=== PATIENT | male | born 1985 | race Caucasian/White ===

== ENCOUNTER 2023-07-04 03:50 | Inpatient (IN) | payer OTHER ==
[2023-07-04 05:01] VITALS: BMI 21.7
[2023-07-04] MEDS ORDERED: ONDANSETRON *ODT* 4 MG TABLET SL PRN (06:32)
[2023-07-04] MEDS ORDERED: BENZOCAINE/MENTHOL (CHLORASEPTIC ) LOZENGE MM PRN (06:32)
[2023-07-04] MEDS ORDERED: ACETAMINOPHEN 325 MG TABLET (FP) PO PRN (06:32)
[2023-07-04] MEDS ORDERED: NICOTINE POLACRILEX 2 MG GUM BUC PRN (06:32)
[2023-07-04] MEDS ORDERED: DICYCLOMINE HCL 10 MG CAPSULE PO PRN (06:32)
[2023-07-04] MEDS ORDERED: BENZONATATE 200 MG CAPSULE PO PRN (06:32)
[2023-07-04] MEDS ORDERED: guaiFENesin 600 MG TABLET.ER (FP) PO PRN (06:32)
[2023-07-04] MEDS ORDERED: BISMUTH SUBSALICYLATE 524 MG/30 ML PO PRN (06:32)
[2023-07-04] MEDS ORDERED: NALOXONE HCL (KLOXXADO) 8 MG SPRAY NS PRN (06:32)
[2023-07-04] MEDS ORDERED: NALOXONE HCL 0.4 MG/ML VIAL IM PRN (06:32)
[2023-07-04] MEDS ORDERED: MAG HYDROX/AL HYDROX/SIMETH 30 ML UNIT-DOSE CUP PO PRN (06:32)
[2023-07-04] MEDS ORDERED: POLYETHYLENE GLYCOL (HEALTHYLAX) 3350 17 GM PACKET PO PRN (06:32)
[2023-07-04] MEDS ORDERED: MAGNESIUM HYDROX 2400MG/30ML ORAL SUSPENSION 30 ML CUP PO PRN (06:32)
[2023-07-04] MEDS ORDERED: IBUPROFEN 400 MG TABLET (FP) PO PRN (06:32)
[2023-07-04] MEDS ORDERED: LOPERAMIDE HCL 2 MG CAPSULE PO PRN (06:32)
[2023-07-04] MEDS ORDERED: diazePAM 5 MG TABLET PO PRN (06:35)
[2023-07-04] MEDS ORDERED: cloNIDine HCL 0.1 MG TABLET PO PRN (06:35)
[2023-07-04] MEDS ORDERED: methaDONE HCL 10 MG TABLET (FOR DETOX USE ONLY) ONE (07:23)
[2023-07-04] MEDS: methaDONE HCL 10 MG TABLET (FOR DETOX USE ONLY) PO ONE (07:28)
[2023-07-04] MEDS: NICOTINE 21 MG/24 HOURS TOPICAL PATCH TD SCH (10:25)
[2023-07-04] MEDS: PRENATAL VITAMINS W/ FOLIC ACID TABLET (FP) PO SCH (10:25)
[2023-07-04] MEDS: diazePAM 5 MG TABLET PO SCH (10:25)
[2023-07-04] MEDS: METHOCARBAMOL 500 MG TABLET PO PRN (17:41)
[2023-07-04] MEDS: MELATONIN 5 MG TABLETS PO SCH (22:40)
[2023-07-04] MEDS: THIAMINE HCL 100 MG TABLET (FP) PO SCH (22:40)
[2023-07-04] MEDS: hydrOXYzine PAMOATE 25 MG CAPSULE (FP) PO PRN (22:41)
[2023-07-05 12:01] LABS: HEMOGLOBIN 14.6 GM/dL (11.7-16.9); MCH 27.4 pg (25.7-33.7); MCHC 32.4 g/dl (32.0-35.9); MEAN CELL VOLUME 84.7 fl (80-96); MEAN PLT VOLUME 9.7 fl (7.5-11.1); PLATELET COUNT 199 10^3/uL (134-434); RBC 5.32 M/mm3 (4.00-5.60); RDW 15.2 % (11.9-15.9); WHITE BLOOD COUNT 6.9 K/mm3 (4.0-10.0)
[2023-07-05 12:03] LABS: POTASSIUM 4.2 mmol/L (3.5-5.1)
[2023-07-05 12:06] LABS: CALCIUM 8.9 mg/dL (8.5-10.1)
[2023-07-05 12:07] LABS: ALBUMIN 3.2 g/dl (3.4-5.0); BLOOD UREA NITROGEN 11.8 mg/dL (7-18)
[2023-07-05 12:10] LABS: CREATININE 0.7 mg/dL (0.55-1.3)
[2023-07-05 12:11] LABS: BILIRUBIN,TOTAL 0.4 mg/dL (0.2-1); TOT PROT 7.4 g/dl (6.4-8.2)
[2023-07-05] MEDS: IBUPROFEN 600 MG TABLET (FP) PO PRN (17:28)
[2023-07-06] MEDS: diazePAM 5 MG TABLET PO SCH (06:33)
[2023-07-06] MEDS: methaDONE HCL 10 MG TABLET (FOR DETOX USE ONLY) PO ONE (10:25)
[2023-07-07] MEDS: diazePAM 5 MG TABLET PO SCH (05:45)
[2023-07-08] MEDS: diazePAM 5 MG TABLET PO ONE (05:51)
[2023-07-08 09:15] VITALS: BP 112/84; PULSE 103; RESP 20; TEMP 98.7
[2023-07-08] MEDS: methaDONE HCL 10 MG TABLET (FOR DETOX USE ONLY) PO ONE (09:54)
== END 2023-07-08 12:14 | disposition home or self-care (01) | DRG 773 ==
LOC: YASAS 03:50 → Y6N 07:20
PROVIDERS: ADMIT Allergy & Immunology; ATTEND Surgery
PROC: HZ2ZZZZ Detoxification Services for Substance Abuse Treatment (ICD-10-PCS; principal; 2023-07-04)
DX: F11.23 Opioid dependence with withdrawal (principal); F10.230 Alcohol dependence with withdrawal, uncomplicated; F12.20 Cannabis dependence, uncomplicated; F17.210 Nicotine dependence, cigarettes, uncomplicated
CPT/HCPCS: 36415; 80053; 80305; 80307; 85027; 86780; 93005; 93010